=== PATIENT | male | born 1975 | race Caucasian/White ===

== ENCOUNTER 2019-05-25 00:34 | Emergency (ER) | payer MEDICAID ==
[~2019-05-25] VITALS: Ht 172.7 cm; Wt 75.0 kg
[2019-05-25 00:48] VITALS: BP 137/75
== END 2019-05-25 06:57 ==
LOC: ER 00:34
DX: S01.81XA Laceration without foreign body of other part of head, initial encounter (principal); S80.812A Abrasion, left lower leg, initial encounter; S80.811A Abrasion, right lower leg, initial encounter; Z60.2 Problems related to living alone; Z59.0 Homelessness; Z56.0 Unemployment, unspecified; Y04.8XXA Assault by other bodily force, initial encounter; Y93.89 Activity, other specified; Y92.89 Other specified places as the place of occurrence of the external cause; Y99.8 Other external cause status
CPT/HCPCS: 70450; 70486; 99284

== ENCOUNTER 2019-10-13 13:35 | Emergency (ER) | payer MEDICAID ==
[~2019-10-13] VITALS: Ht 170.2 cm; Wt 56.5 kg
[2019-10-13 13:54] VITALS: BP 103/57
[2019-10-13] MEDS ORDERED: LIDOcaine 1% W/epiNEPHrine 1:200,000 10ml vial IJ ONE (14:55)
[2019-10-13] MEDS ORDERED: BACDS PO (15:28)
[2019-10-13] MEDS ORDERED: CEPH250T PO (15:28)
--- NOTE | 2019-10-13 15:28 | NUR ---
Lizeth in room performing procedure.
== END 2019-10-13 15:43 | disposition home or self-care (01) ==
LOC: ER 13:35
DX: L02.415 Cutaneous abscess of right lower limb (principal); T63.301A Toxic effect of unspecified spider venom, accidental (unintentional), initial encounter; Z59.0 Homelessness; Z56.0 Unemployment, unspecified; Z79.899 Other long term (current) drug therapy; Y92.89 Other specified places as the place of occurrence of the external cause
CPT/HCPCS: 10060; 99283